=== PATIENT | female | born 1990 | race Caucasian/White ===

== ENCOUNTER 2018-09-25 13:35 | Emergency (ER) | payer OTHER ==
[2018-09-25 13:52] VITALS: BP 119/80
== END 2018-09-25 15:15 | disposition left against medical advice (07) ==
LOC: ED 13:35
DX: Z53.21 Procedure and treatment not carried out due to patient leaving prior to being seen by health care provider (principal)

== ENCOUNTER 2019-05-29 13:54 | Emergency (ER) | payer OTHER ==
[2019-05-29 14:06] VITALS: BP 100/61
== END 2019-05-29 16:22 | disposition left against medical advice (07) ==
LOC: ED 13:54
DX: Z53.21 Procedure and treatment not carried out due to patient leaving prior to being seen by health care provider (principal)

== ENCOUNTER 2019-07-26 07:54 | Outpatient (CLI) | payer OTHER ==
--- NOTE | 2019-07-26 09:39 | MRI Report ---
Reason: HX OF MIGRAINES W/AURAS Procedure Date: 07/26/2019 Accession Number: [id number] / [id number] Procedure: MRI - Brain W/O CPT Code: Final Report FULL RESULT: EXAM: MRI BRAIN WITHOUT CONTRAST EXAM DATE: 07/26/2019 09:03 AM. CLINICAL HISTORY: History of migraines with aura. Chronic migraines for the past 5 months are reported. COMPARISON: None. TECHNIQUE: Multiplanar, multisequence T1-weighted and fluid-sensitive MR sequences of the brain were performed. Sequences optimized for routine evaluation. Other: None. IV Contrast: None. FINDINGS: Brain Volume: Normal for age. Parenchyma/Dura: No mass, acute infarct or hemorrhage. Single punctate 2 mm focus of T2 hyperintensity at the anterior margin of the left external capsule on image 11 of series 701. Otherwise unremarkable appearance of the brain. Ventricles/Cisterns: No hydrocephalus. No abnormal extra-axial fluid collection or hemorrhage. Orbits: Symmetric and unremarkable. Sella Turcica: The pituitary gland, cavernous sinuses, suprasellar cistern and optic chiasm are unremarkable. IAC: Symmetric and unremarkable. Vasculature: Normal signal flow void is seen in the major arterial structures at the skull base. Sinuses: No acute appearing sinus disease. Bones: No focal pathologic appearing marrow signal changes. Other: None. IMPRESSION: 1. No acute intracranial abnormality. 2. Single punctate white matter T2 hyperintensity in the left deep brain of doubtful clinical significance. 3. Otherwise unremarkable appearance of the brain. [facility]
== END 2019-07-26 07:55 | disposition home or self-care (01) ==
LOC: DI 07:54
PROVIDERS: ATTEND Nurse Practitioner Family
DX: G43.109 Migraine with aura, not intractable, without status migrainosus (principal)
CPT/HCPCS: 70551